=== PATIENT | male | born 1970 | race African-American/Black ===

== ENCOUNTER 2021-05-18 17:47 | Emergency (ER) | payer OTHER, SELFPAY ==
[2021-05-18 17:53] VITALS: BP 143/82; PULSE 80; RESP 16; TEMP 36.2; O2SAT 100
--- NOTE | 2021-05-18 17:53 | ED.MALEGU ---
HPI - Male Genitourinary General Chief complaint: Urogenital-Male Stated complaint: POS UTI History of Present Illness HPI Narrative: Patient is a 50-year-old male who presents complaining of burning with urination x3 to 4 days. He reports frequency and urgency. He denies history of UTIs. Denies concerns for STDs. He denies testicular pain or swelling. He denies all other complaints this time. Patient has no significant medical history. MD Complaint: dysuria Related Data Home Medications Medication Instructions Recorded Confirmed simvastatin mg 07/27/19 11/10/20 hydrochlorothiazide 25 mg tablet 25 mg PO DAILY 11/07/20 11/10/20 amlodipine 05/18/21 rosuvastatin mg 05/18/21 sildenafil 05/18/21 Allergies Allergy/AdvReac Type Severity Reaction Status Date / Time No Known Allergies Allergy Verified 05/18/21 17:55 Review of Systems Review of Systems: CONSTITUTIONAL: Denies fever, chills, or sweats. EYES: Denies visual changes, redness, or discharge. ENT: Denies rhinorrhea, congestion, sore throat, or otalgia. CARDIOVASCULAR: Denies chest pain, palpitations, or edema. RESPIRATORY: Denies cough or dyspnea. GASTROINTESTINAL: Denies abdominal pain, nausea, vomiting, or diarrhea. GENITOURINARY: Reports dysuria SKIN: Denies rash or itching. MUSCULOSKELETAL: Denies back pain, joint pain, or myalgia. NEUROLOGIC: Denies headache, numbness, dizziness, or weakness. PSYCHIATRIC: Denies anxiety or depression. [facility] Past Medical History Medical History GERD (gastroesophageal reflux disease) Hypercholesterolemia Hypertension Family History Family History Father Diabetes mellitus Hypertension Mother Diabetes mellitus Heart disease Hypertension Grandparent Hypertension Lung cancer Social History Social History Smoking status: Never smoker Second hand tobacco smoke exposure: No Alcohol intake: never Substance use: unknown Gender identity (if verbalized by the patient): Male Comments At the time of signature, I have reviewed and agree with nursing past medical, surgical, social, and family history unless otherwise noted. Please see nursing chart for further information. There is no relevant family history pertinent to the presenting complaint. Exam Narrative: GENERAL: Well-appearing, well-nourished, and in no acute distress. HEAD: Normocephalic, atraumatic. EYES: EOMI. No redness or drainage. Conjunctiva are normal. ENT: Mucous membranes pink and moist. CHEST: No respiratory distress. HEART: Regular rate and rhythm. EXTREMITIES: Normal range of motion. No edema. SKIN: Warm, dry, no rash. NEURO: No focal deficits. Alert and oriented x3. Gait steady. PSYCH: Normal affect. No signs of depression or anxiety. MDM - Male Genitourinary MDM Narrative Medical decision making narrative: Patient treated with antibiotics at this time as he is symptomatic. Discussed with patient many other things could be occurring and follow-up with his PCP as necessary in the next 3 to 5 days. Patient agrees with plan of care. Patient is to for discharge to home with outpatient follow-up as discussed. Patient is aware of red flags and when to seek further evaluation in the emergency department. Differential Diagnosis Differential diagnosis: Likely urinary tract infection, priapism, urethritis, epididymitis and prostatitis Critical Care Time Critical Care Time Critical Care Time: No Discharge Plan Discharge Clinical Impression: Urinary tract infection Qualifiers: Urinary tract infection type: site unspecified Hematuria presence: without hematuria Qualified Code(s): N39.0 - Urinary tract infection, site not specified Patient Disposition: Home, Self-Care Condition: Stable Instructions: Antibiotic Form, Urinary Tract Infection in Men (DC)
== END 2021-05-18 18:12 | disposition home or self-care (01) ==
PROVIDERS: Emergency Provider Nurse Practitioner; PCP Internal Medicine
DX: N39.0 Urinary tract infection, site not specified (principal); K21.9 Gastro-esophageal reflux disease without esophagitis; E78.00 Pure hypercholesterolemia, unspecified; I10 Essential (primary) hypertension
CPT/HCPCS: 81003; 87086; 99213; G0463

== ENCOUNTER 2021-07-27 00:34 | Day surgery (SDC) | payer OTHER, SELFPAY ==
[2021-06-16 15:36] VITALS: BMI 24.3
[2021-07-14 15:05] VITALS: BMI 24.3
[2021-07-27 08:18] VITALS: BP 134/83; PULSE 70; RESP 16; TEMP 36.2; O2SAT 99; BMI 24.7
[2021-07-27] MEDS: LACTATED RINGERS 1,000 ML 150 ML IV CONT (08:34)
--- NOTE | 2021-07-27 08:45 | P.PNAN_ITS ---
Anes - Initial Pre Proc Eval Procedure: Operation Date: 07/27/21 09:00 Proposed Procedures p Screening Colonoscopy - Gómez Wan MD Date/Time: 07/27/21 08:45 Surgeon: Gómez Wan MD Pre Op Diagnosis: neoplasm screening Patient Data Age: 50 Gender: M Height: 1.88 m Weight: 87.6 kg Last Vital Signs Temp 97.1 F L 07/27/21 08:18 Pulse 70 07/27/21 08:18 Resp 16 07/27/21 08:18 BP 134/83 07/27/21 08:18 Pulse Ox 99 07/27/21 08:18 Allergies Allergy/AdvReac Type Severity Reaction Status Date / Time No Known Allergies Allergy Verified 07/27/21 08:16 Home Medications Medication Instructions Recorded Confirmed Type hydrochlorothiazide 25 mg tablet 25 mg PO DAILY 11/07/20 06/16/21 History amlodipine 5 mg PO DAILY 05/18/21 06/16/21 History rosuvastatin 10 mg PO DAILY 05/18/21 06/16/21 History tadalafil 10 mg PO DAILY PRN 06/16/21 06/16/21 History Patient hx anesthesia problems: none Family hx anesthesia problems: none Results Review: All pre-operative results and documents have been reviewed as part of the pre-operative evaluation. [facility] Past Medical History Medical History GERD (gastroesophageal reflux disease) Hypercholesterolemia Hypertension Family History Family History Father Diabetes mellitus Hypertension Mother Diabetes mellitus Heart disease Hypertension Grandparent Hypertension Lung cancer Social History Social History Smoking status: Never smoker Second hand tobacco smoke exposure: No Alcohol intake: never Substance use: never Substance use type: does not use Living arrangements: with family Gender identity (if verbalized by the patient): Male Spiritual care concerns: No Anes - Eval Final PreProcedure Day of Procedure 07/27/21 08:45 Patient weight: normal Heart: regular rate and rhythm Lungs: clear to auscultation Airway: Mallampati scale class II Neurological: alert and oriented Last oral intake: >/= 8 hours ASA classification: II Emergent: no Anesthetic plan: proceed Anesthesia type and monitoring: general GIVS and standard monitoring Results Review: All pre-operative results and documents have been reviewed as part of the pre-operative evaluation. Informed Consent: The patient's anesthetic plan and its attendant risks and benefits were discussed with the patient/family/POA. Questions were solicited and answers provided to the satisfaction of the patient/family/POA.
--- NOTE | 2021-07-27 08:59 | WPDGICN ---
Assessment and Plan Assessment and plan (1) Encounter for screening colonoscopy: Code(s): Z12.11 - Encounter for screening for malignant neoplasm of colon Status: Acute Assessment and Plan: Patient presents today for screening colonoscopy. Appears to be at average risk for colon polyps. Further recommendations will be given after endoscopy. GI Consult Note Consult date/time: 07/27/21 08:59 HPI: Daniel Dailey is a 50 year old male Presents for screening colonoscopy. Patient's current weight appetite bowel movements are now normal. He denies abdominal pain. He has had no bleeding. Family history is noncontributory. He presents today for neoplasia screening. Review of Systems Review of Systems: All systems reviewed & are unremarkable except as noted in HPI and below PMFSH Past Medical History Medical History GERD (gastroesophageal reflux disease) Hypercholesterolemia Hypertension Family History Family History Father Diabetes mellitus Hypertension Mother Diabetes mellitus Heart disease Hypertension Grandparent Hypertension Lung cancer Social History Social History Smoking status: Never smoker Second hand tobacco smoke exposure: No Alcohol intake: never Substance use: never Substance use type: does not use Living arrangements: with family Gender identity (if verbalized by the patient): Male Spiritual care concerns: No Meds Home Medications and Allergies Home Medications Medication Instructions Recorded Confirmed Type hydrochlorothiazide 25 mg tablet 25 mg PO DAILY 11/07/20 06/16/21 History amlodipine 5 mg PO DAILY 05/18/21 06/16/21 History rosuvastatin 10 mg PO DAILY 05/18/21 06/16/21 History tadalafil 10 mg PO DAILY PRN 06/16/21 06/16/21 History Allergies Allergy/AdvReac Type Severity Reaction Status Date / Time No Known Allergies Allergy Verified 07/27/21 08:16 Vital Signs Vital Signs - 24 hr 07/27/21 08:18 Temperature 97.1 F L Pulse Rate 70 Respiratory Rate 16 Blood Pressure 134/83 Pulse Oximetry 99 Exam Narrative: Physical exam reveals patient to be alert. Vital signs stable. HEENT exam is unremarkable. Patient is anicteric. Lungs are clear to auscultation and percussion. Heart is without murmur or extra sounds. Abdominal exam bowel sounds are present soft nontender with no organomegaly. Digital external rectal exam is normal.
[2021-07-27 09:28] VITALS: BP 97/48; PULSE 68; RESP 13; O2SAT 94
[2021-07-27 09:38] VITALS: BP 101/53; PULSE 61; RESP 11; O2SAT 100
[2021-07-27 09:48] VITALS: BP 105/62; PULSE 63; RESP 15; O2SAT 99
[2021-07-27 09:50] VITALS: BP 124/85; PULSE 71; RESP 14; O2SAT 100
== END 2021-07-27 10:00 | disposition home or self-care (01) ==
PROVIDERS: PCP Internal Medicine; Visit Provider Internal Medicine Gastroenterology
PROC: 0DJD8ZZ Inspection of Lower Intestinal Tract, Via Natural or Artificial Opening Endoscopic (ICD-10-PCS; CPT 45378; principal; 2021-07-27 09:00)
DX: Z12.11 Encounter for screening for malignant neoplasm of colon (principal); K64.8 Other hemorrhoids; I10 Essential (primary) hypertension; E78.00 Pure hypercholesterolemia, unspecified; K21.9 Gastro-esophageal reflux disease without esophagitis
CPT/HCPCS: 45378; J2704; J7120

== ENCOUNTER 2022-08-27 08:22 | Emergency (ER) | payer OTHER, SELFPAY ==
--- NOTE | ~2022-08-27 | XR_ITS ---
XR finger 3rd LT min 2V 08/27/2022 09:03 INDICATION: Left third finger pain PROCEDURE: 4 views left third finger COMPARISON: No prior studies for comparison. FINDINGS: Fracture, dislocation or subluxation is not identified. The soft tissues appear within norm al limits. No foreign bodies are identified. IMPRESSION: 1: NO ACUTE BONE OR JOINT ABNORMALITY IDENTIFIED. Reviewed, dictated and finalized at location B. OPERATOR
[2022-08-27 08:49] VITALS: BP 153/92; PULSE 80; RESP 16; TEMP 36.1; O2SAT 100
--- NOTE | 2022-08-27 08:51 | ED.UPPEXIN ---
HPI - Extremity Injury (Upper) General Chief Complaint: Extremity Injury, Upper Stated Complaint: lt hand middle finger Time Seen by Provider: 08/27/22 09:09 Source: patient and RN notes reviewed Mode of arrival: ambulatory Limitations: no limitations History of Present Illness HPI narrative: 51-year-old male presents with concern for pain to the 3rd digit of the left hand. 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 the digit. Reports he had pain immediately. He reports he thought it would just go away so he did not take any intervention. He denies any swelling, bruising any point. He denies decreased sensation, strength, range of motion in the digit. He reports pain at the DIP joint with flexion. Reports 6/10 pain. Denies pain at rest. Denies redness, warmth, open skin MD complaint: injury to: left and finger Related Data Home Medications Medication Instructions Recorded Confirmed hydrochlorothiazide 25 mg tablet 25 mg PO DAILY 11/07/20 08/27/22 amlodipine 5 mg tablet 5 mg PO DAILY 05/18/21 08/27/22 rosuvastatin 10 mg tablet 10 mg PO DAILY 05/18/21 08/27/22 tadalafil 10 mg tablet 10 mg PO DAILY PRN Sexual Activity 06/16/21 08/27/22 Allergies Allergy/AdvReac Type Severity Reaction Status Date / Time No Known Allergies Allergy Verified 08/27/22 08:50 Review of Systems Review of Systems: CONSTITUTIONAL: Denies malaise, chills, sweats, or fever. SKIN: Denies rash or itching, open skin, laceration, abrasion, redness, warmth, swelling. MUSCULOSKELETAL: Reports left 3rd digit pain NEUROLOGIC: Denies numbness, weakness All systems reviewed & are unremarkable except as noted in HPI and below PMFSH Past Medical History Medical History GERD (gastroesophageal reflux disease) Hypercholesterolemia Hypertension Family History Family History Father Diabetes mellitus Hypertension Mother Diabetes mellitus Heart disease Hypertension Grandparent Hypertension Lung cancer Social History Social History Smoking status: Never smoker Second hand tobacco smoke exposure: No Alcohol intake: never Substance use: never Substance use type: does not use Living arrangements: with family Gender identity (if verbalized by the patient): Male Spiritual care concerns: No Comments At time of signature, agree with nursing past medical, surgical, social and family history. There is no relevant family history pertinent to the presenting complaint Exam Narrative: GENERAL: Well-appearing, well-nourished, and in no acute distress. HEAD: Normocephalic EYES: PERRLA, conjunctivae clear NECK: Supple. CHEST: Speaks in full sentences. No respiratory distress. HEART: Regular rate and rhythm. Normal and equal peripheral pulses. EXTREMITIES: 3rd digit of left hand ties normal strength and sensation. 5/5 strength with digit flexion, extension. Range of motion normal. No clubbing, cyanosis, or edema noted. No tenderness. Skin intact. Normal digital cascade with flexion of fingers, median, ulnar and radial nerve intact. Normal sensation of each side of finger. Can perform 'okay' sign, 'cross over finger test of index and middle fingers' and 'thumbs up' sign. No scissoring. Good capillary refill and radial pulse. Distal capillary refill less than 3 seconds. Patient is right/left hand dominant SKIN: Warn, dry, intact, pink. No rash NEURO: Alert and oriented x3. PSYCH: Normal mood and affect Course Course Emergency Course: Advised patient to wear splint, take anti-inflammatories and if symptoms do not improve within 1 week of these interventions he should follow-up with specialist. Patient is aware of diagnosis, understands and agrees to treatment plan. Anticipatory guidance given. Annie
== END 2022-08-27 09:27 | disposition home or self-care (01) ==
PROVIDERS: Emergency Provider Nurse Practitioner; PCP Internal Medicine
DX: S63.613A Unspecified sprain of left middle finger, initial encounter (principal); I10 Essential (primary) hypertension; X58.XXXA Exposure to other specified factors, initial encounter; Y99.0 Civilian activity done for income or pay
CPT/HCPCS: 29130; 73140; 99213; G0463

== ENCOUNTER 2023-03-28 18:05 | Emergency (ER) | payer OTHER, SELFPAY ==
[2023-03-28 18:12] VITALS: BP 148/91; PULSE 89; RESP 16; TEMP 36.8; O2SAT 99
--- NOTE | 2023-03-28 18:28 | ED.EAR ---
HPI - Ear Problem General Chief complaint: Ear Stated complaint: FLUID IN EARS Source: patient Mode of arrival: ambulatory Limitations: no limitations History of Present Illness HPI Narrative: 52-year-old male presented for complaint of bilateral ear pressure, left worse than right, for over one week. Symptoms started after flying to [place]. Endorses sinus congestion and drainage about one week ago which has resolved. Reports muffled hearing. Endorses chronic tinnitus unchanged from baseline. Denies dizziness, n/v/d/f/c. MD Complaint: ear pain Related Data Home Medications Medication Instructions Recorded Confirmed hydrochlorothiazide 25 mg tablet 25 mg PO DAILY 11/07/20 03/28/23 amlodipine 5 mg tablet 5 mg PO DAILY 05/18/21 03/28/23 rosuvastatin 10 mg tablet 10 mg PO DAILY 05/18/21 03/28/23 tadalafil 10 mg tablet 10 mg PO DAILY PRN Sexual Activity 06/16/21 03/28/23 Allergies Allergy/AdvReac Type Severity Reaction Status Date / Time No Known Allergies Allergy Verified 03/28/23 18:12 Review of Systems Review of Systems: CONSTITUTIONAL: Denies malaise, chills, or fever. EYES: Denies visual changes, redness, or discharge. ENT: Denies rhinorrhea, congestion, sinus pain, and sore throat. Reports ear pain CARDIOVASCULAR: Denies chest pain, palpitations, or edema. RESPIRATORY: Denies cough or dyspnea. GASTROINTESTINAL: Denies abdominal pain, nausea, vomiting, diarrhea SKIN: Denies rash or itching. MUSCULOSKELETAL: Denies myalgia. NEUROLOGIC: Denies headache. All systems reviewed & are unremarkable except as noted in HPI and below PMFSH Past Medical History Medical History GERD (gastroesophageal reflux disease) Hypercholesterolemia Hypertension Family History Family History Father Diabetes mellitus Hypertension Mother Diabetes mellitus Heart disease Hypertension Grandparent Hypertension Lung cancer Social History Social History Smoking status: Never smoker Second hand tobacco smoke exposure: No Alcohol intake: never Substance use: never Substance use type: does not use Living arrangements: with family Gender identity (if verbalized by the patient): Male Spiritual care concerns: No Comments At time of signature, agree with nursing past medical, surgical, social and family history. There is no relevant family history pertinent to the presenting complaint Exam Narrative: GENERAL: Well-appearing, well-nourished, and in no acute distress. HEAD: Normocephalic EYES: PERRLA, conjunctivae clear ENT: Nares clear. Mucous membranes moist. Right TM pearly browning with dull light reflex; Left TM with mild erythema, intact; and mild purulent effusion; no tragal tenderness. Oropharynx not erythematous without lesions. Tonsils not enlarged and without exudate, no drooling, no hoarseness, no trismus, uvula midline. NECK: Supple. No lymphadenopathy CHEST: Clear to auscultation, breath sounds equal. No wheezing, rhonchi, rales, or stridor. No respiratory distress, speaks in full sentences. HEART: Regular rate and rhythm. No murmur heard. SKIN: Warm, dry, no rash. NEURO: Alert and oriented x3. PSYCH: Normal mood and affect Course Course Emergency Course: Patient is aware of diagnosis, understands and agrees to treatment plan. Anticipatory guidance given. Patient agrees to follow-up as directed and is aware of reasons to seek care at the emergency department. Portions of this record may have been created with voice recognition software Level of Care: Express Care Visit Vital Signs Vital signs: Vital Signs Temperature 98.3 F 03/28/23 18:12 Pulse Rate 89 03/28/23 18:12 Respiratory Rate 16 03/28/23 18:12 Blood Pressure 148/91 H 03/28/23 18:12 Pulse Oximetry 99 03/28/23 18:12 Temperature 98.3 F
== END 2023-03-28 18:36 | disposition home or self-care (01) ==
PROVIDERS: Emergency Provider Nurse Practitioner Family; PCP Internal Medicine
DX: H66.93 Otitis media, unspecified, bilateral (principal); I10 Essential (primary) hypertension; Z79.899 Other long term (current) drug therapy
CPT/HCPCS: 99213; G0463

== ENCOUNTER → 2023-05-16 08:44 | Outpatient (CLI) | payer OTHER, SELFPAY ==
--- NOTE | ~2023-05-16 | CT_ITS ---
EXAMINATION: CT sinus wo con DATE: 05/16/2023 09:02 INDICATION: Rhinitis. Sinusitis. Mixed conductive and neurosensory hearing loss. Tinnitus. TECHNIQUE: Computed tomography (CT) of the paranasal sinuses was performed without contrast. Iterativ e reconstruction technique was employed. Exam dose: 278.24 mGy-cm total exam DLP. COMPARISON: None FINDINGS: The middle and inner ear apparatus appear normal bilaterally. The mastoid air cells are normally developed and aerated bilaterally. Is leftward deviation of the nasal septum. There is moderate soft tissue swelling of the nasal turbin ates. The ostiomeatal units are patent. The frontal, ethmoid and sphenoid sinuses are normally developed and aerated. There is an approximately 6 mm mucus retention cyst or polyp along the medial wall right maxillary si nus and up to approximately 1.3 x 1.6 x 2 cm polypoid soft tissue density in the lower right maxillar y sinus in addition to several focal areas of mild mucoperiosteal thickening of the right maxillary s inus. IMPRESSION: Leftward deviation of nasal septum Patent ostiomeatal units Small mucus retention cyst left maxillary sinus and up to 1.3 x 1.6 x 2 cm polypoid opacity of the lo wer right maxillary sinus and several focal areas of minimal nuchal periosteal thickening of the righ t maxilla sinus The remaining paranasal sinuses and the mastoid air cells are normal Normal middle and inner ear apparatus Reviewed, dictated and finalized at Location A. Reviewed, dictated and finalized at location L. GER PIPELINE IMPRESSION: Leftward deviation of nasal septum Patent ostiomeatal units Small mucus retention cyst left maxillary sinus and up to 1.3 x 1.6 x 2 cm poly poid opacity of the lower right maxillary sinus and several focal areas of mini mal nuchal periosteal thickening of the right maxilla sinus The remaining paranasal sinuses and the mastoid air cells are normal Normal middle and inner ear apparatus
== END ==
PROVIDERS: PCP Otolaryngology; Visit Provider Otolaryngology
DX: H90.6 Mixed conductive and sensorineural hearing loss, bilateral (principal); H93.19 Tinnitus, unspecified ear; J34.2 Deviated nasal septum
CPT/HCPCS: 70486

== ENCOUNTER 2025-05-12 07:41 | Outpatient (CLI) | payer BC, SELFPAY ==
--- OUTSIDE RECORDS SUMMARY | 2025-05-12 07:44 | XMS_ITS | Clinical Summary ---
Author Organization [facility] [employer] Address [address] [place] [address] Care Team Providers Care Finish Carpenter Name Role Phone Unavailable Primary Care Provider Unavailabl e Source Comments [facility],non-owned Affiliates and Associated Physician Practices is amultiple site organization consisting of ambulatory clinics and hospital sitesin [place], [place], [place] and [place]. This disclosure is being madepursuant to the Care Everywhere program and may not contain all information available regarding this patient. 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 Gender Identity Not on file Sexual Orientation Not on file Plan of Treatment Health Maintenance Due Date Last Done Comments COLOGUARD (AGES 45-75) - COL ON CA SCREENING 1972 COLON MONITORING 1972 COLONOSCOPY - COLON CA SCREENING 1972 CT COLONOGRAPHY - COLON CA SCREENING 1972 Colorectal Cancer Screening 1972 FIT - COLON CA SCREENING 1972 FLEX SIG - COLON CA SCREENING 1972 LIPID TESTING 1972 HIV SCREENING 10/07/1987 HEPATITIS C SCREENING 10/02/1990 DTAP/TDAP/TD VACCINES (1 - Tdap) 10/07/1991 HEPATITIS B VACCINE (1 of 3 - 19+ 3-dose series) 10/07/1991 PNEUMOCOCCAL VACCINE 50+ (1 of 1 - PCV) 2022 ZOSTER VACCINE (1 of 2) 2022 DEPRESSION SCREENING 07/01/2024 COVID-19 VACCINE (1 - 2023-2 5 season) 2025 INFLUENZA VACCINE (#1) 2025 HIB VACCINE Aged Out No longer eligi ble based on patient's age to complete this topic HPV VACCINE Aged Out No longer eligi ble based on patient's age to complete this topic MENINGOCOCCAL (Group B) VACC INE SHARED DECISION-MAKING Aged Out No longer eligibl e based on patient's age to complete this topic MENINGOCOCCAL GROUPS A/C/Y/W VACCINE Aged Out No longer eligible b ased on patient's age to complete this topic Insurance [place] [id number]
--- OUTSIDE RECORDS SUMMARY | 2025-05-12 07:44 | XMS_ITS | Clinical Summary ---
Author Organization [facility] Address [address] [place] [address] Care Team Providers Care Glove Wrapper Name Role Phone Nabil Gross MD Primary Care Provider [phone] Allergies Active Allergy Reactions Criticality Noted Date Comments Adhesive Flushing (skin) Low 08/18/2019 Medications simvastatin (ZOCOR) 40 mg tablet Take 1 tablet (40 mg total) by mouth nightly 90 tablet 3 0 Active dilTIAZem CD/XR/XT (dilTIAZem CD) 120 mg 24 hr capsule One daily for 7 days then every other day for 7 days then DC 14 capsule 0 Active Additional Information Patient not taking.Reported on 05/02/2020 telmisartan (MICARDIS) 20 mg tablet Take 1 tablet (20 mg total) by mouth daily 30 tablet 11 0 Active Additional Information Patient not taking.Reported on 05/02/2020 hydroCHLOROthia zide (HYDRODIURIL) 12.5 mg tablet Take 12.5 mg by mouth daily [address] (PROTONIX) 40 mg EC tabletIndicatio ns:Laryngophary ngeal reflux (LPR) Take 1 tablet (40 mg total) by mouth daily 30 tablet 3 0 Active Active Problems Problem Noted Date Diagnosed Date Annual physical exam 07/20/2019 HTN (hypertension) 05/23/2016 Immunizations Immunization Administration Dates Next Due Flucelvax Influenza Quad 07/21/2019 Influenza, Unspecified 03/31/2019(Deferred: Annie ent Refused) Family History Medical History Relation Name Comments No Known Problems Brother Diabetes Father No Known Problems Maternal Grandfather No Known Problems Maternal Grandmother Diabetes Mother Heart disease Mother Hypertension Mother No Known Problems Paternal Grandfather No Known Problems Paternal Grandmother No Known Problems Sister Relation Name Status Comments Brother Alive Father Alive Maternal Grandfather Maternal Grandmother Mother Alive Paternal Grandfather Paternal Grandmother Sister Alive Social History Tobacco Use Types Packs/Day Years Used Date Smoking Tobacco: Never Smokeless Tobacco: Never Alcohol Use Standard Drinks/Week Comments Not Currently 0 (1 standard drink = 0.6 oz pur e alcohol) AUDIT-C Answer Date Recorded Frequency of Alcohol Consumption Never 07/20/2019 Average Number of Drinks Not on file 020 Frequency of Binge Drinking Not on file 07/02 Personal Safety Answer Date Recorded Getting School Help Needed Not on file 09/14 Sex and Gender Information Value Date Recorded Sex Assigned at Not on file 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 Gender Identity Not on file Sexual Orientation Not on file Last Filed Vital Signs Vital Sign Reading Time Taken Comments Blood Pressure 139/89 05/02/2020 1:40 PM INFUSION NURSE Pulse 69 05/02/2020 1:40 PM INFUSION NURSE Temperature 36.3 C (97.3 F) 05/02/2020 1:40 PM INFUSION NURSE Respiratory Rate 16 05/02/2020 1:40 PM INFUSION NURSE Oxygen Saturation 95% 08/18/2019 8:46 AM INFUSION NURSE Inhaled Oxygen Concentration - - Weight 89.8 kg (198 lb) 05/02/2020 1:40 PM INFUSION NURSE Height 188 cm (6' 2) 05/02/2020 1:40 PM INFUSION NURSE Body Mass Index 25.42 05/02/2020 1:40 PM INFUSION NURSE Plan of Treatment Not on file Insurance [employer] Care Teams Glove Wrapper Relationship Specialty Start Date End Date Nabil Gross MD PCP - General Family Medicine 07/09/19
--- OUTSIDE RECORDS SUMMARY | 2025-05-12 07:45 | XMS_ITS | Data Portability ---
Author Organization [facility] (11) Address [address] [address] Assessment No assessment recorded. Plan of Treatment Reminders Order Date Submit Date Provider Last Modified By Organization Details Last Modified Time Details Appointments None record ed. Lab None record ed. Referral None record ed. Procedures None record ed. Surgeries None record ed. Imaging None record ed. Medication Orders None record ed. Patient TargetsNo targets recorded. Patient InstructionsNo instructions recorded. Reason for Referral None Reported. Procedures Surgical History Date Name Laterality Status Provider Name and Address Organization Details Recorded Time 11/13/2023 Sleep Study completed Tom Galvan [facility] 11/15/2023 13:21:36 Imaging Results None recorded. Procedure Notes None recorded. Medical Equipment None Reported. Medications Name Sig Start Date Stop Date Status Note LastModified by Organization Details LastModified Time spironolacto ne 25 mg-hydrochlo rothiazide 25 mg tablet TAKE 1 TABLET BY MOUTH EVERY DAY active Not Available Not Available No t Available prednisone 20 mg tablet 20 MG ORALLY DAILY active Not Available Not Available No t Available methylpredni solone 4 mg tablet TAKE ONE TABLET BY MOUTH TWICE DAILY active Not Available Not Available No t Available amlodipine 5 mg tablet active Not Available Not Available No t Available triamcinolon e acetonide 0.1 % topical cream APPLY A THIN LAYER TO THE AFFECTED AREA(S) BY TOPICAL ROUTE 2 TIMES PER DAY. NEVER TO FACE. active Not Available Not Available No t Available amlodipine 10 mg tablet TAKE 1 TABLET BY MOUTH EVERY DAY IN THE EVENING active Not Available Not Available No t Available hydrochlorot hiazide 25 mg tablet active Not Available Not Available No t Available azelastine 137 mcg (0.1 %) nasal spray 137 MCG (0.137 ML) INTRANASALL Y EVERY 12 HOURS ADMINISTER INTO EACH NOSTRIL active Not Available Not Available No t Available amoxicillin 875 mg-potassium clavulanate 125 mg tablet TAKE 1 TABLET BY MOUTH EVERY 12 HOURS FOR 7 DAYS active Not Available Not Available N ot Available rosuvastatin 10 mg tablet active Not Available Not Available Not Available tadalafil 20 mg tablet active Not Available Not Available No t Available cholecalcife rol (vitamin D3) 25 mcg (1,000 unit) tablet active Not Available Not Available Not Available Vitals Date Recorded Body height Body mass index (BMI) Body weight Provider Name and Address Organization Details Last Updated DateTime 11/13/2023 187.96 cm 25.2 kg/m2 18560.1 g Nabil [facility] [place]/13/2023 10:05:17 Social History None recorded. Functional Status None recorded. Mental Status None recorded. Family History Nothing Reported. Medical History No medical history recorded. Past Encounters Encounter ID Performer Location Encounter Start Date Encounter Closed Date Diagnosis/Indication Diagnosis SNOMED-CT Code Diagnosis ICD10 Code Diagnosis IMO Codes Diagnosis Note [id number] [facility] [place], [facility] [phone] [place] [address] 11/13/2023 09:43:20 11/15/2023 13:14:09 Obstructive sleep apnea of adult 0280120737 103 G47.33 Health Concerns Section Related Observation LastModified by Organization Detai ls LastModified Time None Recorded Concern Status LastModified by Organization Details LastModified Time None Recorded Advance Directives Directive None Recorded Payers Insurance Date Sequence Insurance Name Policy Number Policy Zurita Covered Member ID Zurita Member ID Guarantor Name 11/27/2023 1 [employer] [id number] Daniel Dailey [id number] Daniel Dailey Notes Date Note Type Note Provider Name and Address Organization Details Recorded Time 11/13/2023 text/html HST SetupReporte d by PatientEquipment InstructionsFor hst set up, patient reportshst device number 31,demonstrated to patient how to set up home sleep test device. the patient was able to return demonstration with out difficulty., andthe patient is returning the device the following morning.. MD JERMAINE Evans, F.C.C.P. [phone] [address] [place] [address], [place], [address], EVELINA - [facility]/ERNA/ESTEFANIA 11/15/2023 16:32:32
--- OUTSIDE RECORDS SUMMARY | 2025-05-12 07:45 | XMS_ITS | Encounter Summary ---
Author Organization [facility] Address [address] [place] [address] Care Team Providers Care Texturing Machine Fixer Name Role Phone Manny Kimbrough MD Unavailable Unavailable Encounter Details Date Type Department Care Team (Late st Contact Info) Description 02/25/2019 Lab Requisition [facility] Derm[facility] Lab [address] [facility] [place] [id number] Hernan Michaud MD [address] [place] [phone] Social History Tobacco Use Types Packs/Day Years Used Date Smoking Tobacco: Never Assessed Sex and Gender Information Value Date Recorded Sex Assigned at Not on file Legal Sex Male 6:02 PM [employer]OTHING [employer] Gender Identity Not on file Sexual Orientation Not on file documented as of this encounter Plan of Treatment Not on file documented as of this encounter Procedures Procedure Name Priority Date/Time Associated Diagnosis Comments DERMATOPATHOLOGY Routine 02/24/2019 12:0 0 AM CDT documented in this encounter Results * DERMATOPATHOLOGY (02/24/2019 12:00 AM CDT) Case Report Dermatopathology Report Case: [id number] Authorizing Provider: Hernan Michaud MD Collected: 02/24/2019 12:00 AM Ordering Location: [facility] Derm[facility] Lab Received: 02/25/2019 10:59 AM Pathologist: Jackson Guillen MD Specimen: Skin, right upper back 9 4:56 PM CDT DERMATOPATHOLOGY LABORATORY Final Diagnosis Specimen A. 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 4:56 PM CDT DERMATOPATHOLOGY LABORATORY Gross Description Specimen A: Received is one formalin filled container labeled with the patient's name and designated right upper back. The specimen consists of a shave biopsy measuring [id number], bisected. Jar 0. 4:56 PM CDT DERMATOPATHOLOGY LABORATORY Microscopic Description Specimen A. SKIN, right upper back: There is a gently folded epidermis surrounding a connective tissue core in which fat and collagen are intermingled. 4:56 PM CDT DERMATOPATHOLOGY LABORATORY Disclaimer An external and internal positive and negative controls are appropriate for the histochemical, immunohistochemical and immunofluorescence stain(s) in this case (if any), except where stated explicitly. The performance characteristics of the stain(s) cited in this report were developed and its performance characteristic determined by the Dermatopathology Laboratory at [facility], directed by Dr. Devyn Guillen. These tests need not be, and therefore are not, approved by the [place] Food and Drug Administration. The tests are used for clinical purposes. Billing Codes Specimen Charges Stain Charges 07785 1 4:56 PM CDT DERMATOPATHOLOGY LABORATORY Embedded Images 4:56 PM CDT DERMATOPATHOLOGY LABORATORY Pathology/Cytolog y TISSUE SPECIMEN FROM SKIN / Unknown 02/24/2019 02/25/2019 10:59 AM CDT us Hernan Michaud MD LAB - PATHOLOGY/CYTOLOGY ORDERAB LES Final Result DERMATOPATHOLOGY LABORATORY [facility] - Department of Dermatology [address] [place] [address], [address] Floor Lab [address] [phone] documented in this encounter Visit Diagnoses Not on filedocumented in this encounter Care Teams Texturing Machine Fixer Relationship Specialty Start Date End Date Manny Kimbrough MD OIG SANCTIONED!!! DO NOT USE!!! PCP - Attributed-[employer] 03/31/19 09/08/19 documented as of this encounter
--- OUTSIDE RECORDS SUMMARY | 2025-05-12 07:45 | XMS_ITS | Data Portability ---
Author Organization [facility], [employer] Address [address] [address] Assessment Encounter Date Assessment Date Assessment LastModified by Organization Details LastModified Time 02/24/2024 02/24/2024 Patient presente d for follow up. Studies ordered as below. Discussed plan with patient/caregiver , who expressed understanding. Follow up as noted below. [email or web address] Not available 02/24/2024 15:30:43 04/20/2024 04/20/2024 Patient presente d for follow up. Studies ordered as below. Discussed plan with patient/caregiver , who expressed understanding. Follow up as noted below. Not available 04/20/2024 20:41:06 05/01/2024 05/01/2024 Recommends healthy nutrition, including a diet rich in fruits and vegetables, minimizing simple carbohydrates, salt, and saturated fats. Encouraged regular cardiovascular exercise such as walking at least 30 minutes daily, 5 times per week. Not available 05/01/2024 11:02:57 11/25/2024 11/25/2024 Recommends healthy nutrition, including a diet rich in fruits and vegetables, minimizing simple carbohydrates, salt, and saturated fats. Encouraged regular cardiovascular exercise such as walking at least 30 minutes daily, 5 times per week. Not available 11/25/2024 17:22:31 04/05/2025 04/05/2025 Patient presente d for follow up. Studies ordered as below. Discussed plan with patient/caregiver , who expressed understanding. Follow up as noted below. [email or web address] Not available 04/05/2025 17:22:21 Plan of Treatment Reminders Order Date Submit Date Provider Last Modified By Organization Details Last Modified Time Details Appointments ESTABLISH ED PATIENT 15 11/19/ 2025 02:30P Jackson Nunes MD Not available Not available Not available Lab CBC w/ auto diff 2024 025 [facility], [address], [place], [place], [address], 04/05/2025 18:23:04 CMP, serum or plasma 2024 025 [facility], [address], [place], [place], [address], 04/12/2025 08:34:58 amylase + lipase, serum 2024 025 [facility], [address], [place], [place], [address], 04/12/2025 08:34:58 HbA1c (hemoglob in A1c), blood 2024 025 [email or web address] [facility], [address], [place], [place], [address], 12/01/2024 07:13:02 CMP, serum or plasma 2024 025 [email or web address] [facility], [address], [place], [place], [address], 12/01/2024 07:12:59 lipid panel, serum 2024 025 [facility], [address], [place], [place], [address], 12/01/2024 07:12:58 PSA, serum or plasma 2024 025 [email or web address] [facility], [address], [place], [place], [address], 12/01/2024 07:13:00 vitamin D, 25-hydrox y, total, serum 2024 025 [email or web address] [facility], [address], [place], [place], [address], 12/01/2024 07:13:01 microalbu min/creat inine, mass ratio, urine 2024 025 [facility], [address], [place], [place], [address], 12/01/2024 07:12:58 CBC w/ auto diff 2024 025 [facility], [address], [place], [place], [address], 12/01/2024 07:13:00 iron + TIBC + ferritin, serum 2024 025 [facility], [address], [place], [place], [address], 12/01/2024 07:12:57 HbA1c (hemoglob in A1c), blood 2023 024 [facility], [address], [place], [place], [address], 05/06/2024 10:20:45 vitamin D, 25-hydrox y, total, serum 2023 024 [facility], [address], [place], [place], [address], 05/06/2024 10:20:44 microalbu min/creat inine, mass ratio, urine 2023 024 [facility], [address], [place], [place], [address], 05/06/2024 10:20:41 CBC w/ auto diff 2023 024 [facility], [address], [place], [place], [address], 05/06/2024 10:20:43 iron + TIBC + ferritin, serum 2023 024 [email or web address] [facility], [address], [place] [address], [place], [address], 05/06/2024 10:20:38 CMP, serum or plasma 2023 024 [email or web address] [facility], [address], [address], [place], [address], 05/06/2024 10:20:42 lipid panel, serum 2023 024 [email or web address] [facility], [address], [place] [address], [place], [address], 05/06/2024 10:20:39 Referral gastroent erologist referral 2024 025 jarrett Wan MD, [address] [facility] [address], [place], [address], 11/25/2024 17:26:46 gastroent erologist referral 2023 024 jarrett Wan MD, [address] [facility] [address], [place], [address], 06/01/2024 08:42:24 podiatris t referral 2023 024 [email or web address] Kurtis Gomez DPM, [address] [facility], [facility] [address], [place], [address], 04/15/2025 08:16:51 Procedures None recorded. Surgeries None recorded. Imaging XR, sternum, 2 or more view - Please focus on the Xiphoid process where the pain is. 2024 [facility] ([facility]), [address], [address], [place], [address], 04/12/2025 08:34:51 electroca rdiogram 2024 025 [facility], [facility], [address] [facility] , [address], [place], [address], 11/30/2024 08:42:42 XR, foot, 3 or more view 2023 024 [facility] ([facility]), [address], [address], [place], [address], 04/27/2024 09:03:50 XR, ribs, unilatera l, w/ PA chest 2023 024 [facility] ([facility]), [address], [address], [place], [address], 03/03/2024 13:59:58 Medication Orders None recorded. Patient TargetsNo targets recorded. Patient InstructionsNo instructions recorded. 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 Pain in right foot Referring Physician: Josafat Nunes, Internal Medicine, Encounter Date: 04/20/2024 Manager Care Referral for Hematochezia Referring Physician: Josafat Nunes, Internal Medicine, Encounter Date: 05/01/2024 Manager Care Referral for Hematochezia Referring Physician: Josafat Nunes, Internal Medicine, Encounter Date: 11/25/2024 Results Created Date Observation Date Name Description Value Unit Range Abnormal Flag Note LastModifiedBy Organization Detail LastModifiedTime 05/05/2005/06/2024 IRON, TIBC AND KASHMIR TIN PANEL iron, total 138 mcg/d L 50-180 normal Not Available [email or web address] [facility] [address] [place], [address], 05/06/2024 10:20:38 05/05/2005/06/2024 IRON, TIBC AND KASHMIR TIN PANEL iron binding capacity 304 mcg/d L_(ca lc) 250-42 5 normal Not Available [email or web address] [facility] [address] [place], [address], 05/06/2024 10:20:38 05/05/20 24 05/06/2024 IRON, TIBC AND KASHMIR TIN PANEL % saturation 45 %_(ca lc) 20-48 normal Not Available [address], [address], 05/06/2024 10:20:38 05/05/20 24 05/06/2024 IRON, TIBC AND KASHMIR TIN PANEL ferritin 312 NG/mL 38-380 normal Not Available [address], [address], 05/06/2024 10:20:38 05/05/20 24 05/06/2024 LIPID PANEL , STAND KASIA cholesterol, total 184 mg/dL <200 normal Not Available [address], [address], 05/06/2024 10:20:39 05/05/20 24 05/06/2024 LIPID PANEL , STAND KASIA HDL cholesterol 75 mg/dL > or = 40 normal Not Available [address], [address], 05/06/2024 10:20:39 05/05/20 24 05/06/2024 LIPID PANEL , STAND KASIA triglyceride s 88 mg/dL <150 normal Not Available [address], [address], 05/06/2024 10:20:39 05/05/20 24 05/06/2024 LIPID PANEL , STAND KASIA LDL-choleste rol 91 mg/dL _(afshin c) normal Refer ence range : <100 Madeline able range <100 mg/dL for prima ry preve ntion ; <70 mg/dL for patie nts with CHD or diabe tic patie nts with > or = 2 CHD risk facto rs. LDL-C is now calcu lated using the Luz n-Hop kins calcu latcarrie n, which is a valid ated novel metho d provi ding catarino r accur acy than the [employer] equat ion in the estim ation of LDL-C . Luz carlos SS et al. ZITA. 2013; 310(1 9): 2061- 2068 (http ://ed ucati on.Qu Julian penningtonStudentgems. com/f aq/FA Q164) Not Available [address] , [place], [address], 05/06/2024 10:20:39 05/05/20 24 05/06/2024 LIPID PANEL , STAND KASIA chol/HDLC ratio 2.5 (calc ) <5.0 normal Not Available [address] , [place], [address], 05/06/2024 10:20:39 05/05/20 24 05/06/2024 LIPID PANEL , STAND KASIA non HDL cholesterol 109 mg/dL _(afshin c) <130 normal For patie nts with diabe nelson plus 1 major ASCVD risk facto r, treat ing to a non-H DL-C goal of <100 mg/dL (LDL- C of <70 mg/dL ) is consi dered a thera michela shuklao n. Not Available [address] , [place], [address], 05/06/2024 10:20:39 05/05/20 24 05/06/2024 ALBUM IN, RANDO M URINE W/CRE ATINI NE creatinine, random urine 351 mg/dL 20-320 high Verif ied by repea t joanen sis. Not Available [address], [place], [address], 05/06/2024 10:20:41 05/05/20 24 05/06/2024 ALBUM IN, RANDO M URINE W/CRE ATINI NE albumin, urine 0.6 mg/dL see note: normal Refer ence Range : Refer ence Range Not estab lishe d Not Available [address], [place], [address], 05/06/2024 10:20:41 05/05/20 24 05/06/2024 ALBUM IN, RANDO M URINE W/CRE ATINI NE albumin/crea tinine ratio, random urine 2 mg/g_ creat <30 normal The ADA defin es abnor malit ies in album in excre tion as follo ws: Album inuri a Categ ory Resul t (mg/g creat inine ) Tayler l to Mildl y incre ased <30 Moder ately incre ased 30-29 9 Sever kaci incre ased > OR = 300 The ADA recom mends that at least two of three speci mens colle cted withi n a 3-6 month perio d be abnor mal befor e consi beka g a patie nt to be withi n a diagn ostic categ ory. Not Available [address], [address], 05/06/2024 10:20:41 05/05/20 24 05/06/2024 COMPR EHENS ESSIE METAB OLIC PANEL glucose 93 mg/dL 65-99 normal Fasti ng refer ence inter reg Not Available [address], [address], 05/06/2024 10:20:42 05/05/20 24 05/06/2024 COMPR EHENS ESSIE METAB OLIC PANEL urea nitrogen (BUN) 17 mg/dL 7-25 normal Not Available [address], [address], 05/06/2024 10:20:42 05/05/20 24 05/06/2024 COMPR EHENS ESSIE METAB OLIC PANEL creatinine 1.31 mg/dL 0.70-1 .30 high Not Available [address], [address], 05/06/2024 10:20:42 05/05/20 24 05/06/2024 COMPR EHENS ESSIE METAB OLIC PANEL eGFR 66 mL/mi n/1.7 3m2 > or = 60 normal Not Available [address], [address], 05/06/2024 10:20:42 05/05/20 24 05/06/2024 COMPR EHENS ESSIE METAB OLIC PANEL BUN/creatini ne ratio 13 (calc ) 6-22 normal Not Available [address], [address], 05/06/2024 10:20:42 05/05/20 24 05/06/2024 COMPR EHENS ESSIE METAB OLIC PANEL sodium 140 mmol/ L 135-14 6 normal Not Available [address], [address], 05/06/2024 10:20:42 05/05/20 24 05/06/2024 COMPR EHENS ESSIE METAB OLIC PANEL potassium 4.3 mmol/ L 3.5-5. 3 normal Not Available [address], [address], 05/06/2024 10:20:42 05/05/20 24 05/06/2024 COMPR EHENS ESSIE METAB OLIC PANEL chloride 102 mmol/ L 98-110 normal Not Available [address], [address], 05/06/2024 10:20:42 05/05/20 24 05/06/2024 COMPR EHENS ESSIE METAB OLIC PANEL carbon dioxide 30 mmol/ L 20-32 normal Not Available [address], [address], 05/06/2024 10:20:42 05/05/20 24 05/06/2024 COMPR EHENS ESSIE METAB OLIC PANEL calcium 9.5 mg/dL 8.6-10 .3 normal Not Available [address], [address], 05/06/2024 10:20:42 05/05/20 24 05/06/2024 COMPR EHENS ESSIE METAB OLIC PANEL protein, total 7.2 g/dL 6.1-8. 1 normal Not Available [address] [address] [place], [address], 05/06/2024 10:20:42 05/05/20 24 05/06/2024 COMPR EHENS ESSIE METAB OLIC PANEL albumin 4.3 g/dL 3.6-5. 1 normal Not Available [address], [address], 05/06/2024 10:20:42 05/05/20 24 05/06/2024 COMPR EHENS ESSIE METAB OLIC PANEL globulin 2.9 g/dL_ (calc ) 1.9-3. 7 normal Not Available [address], [address], 05/06/2024 10:20:42 05/05/20 24 05/06/2024 COMPR EHENS ESSIE METAB OLIC PANEL albumin/glob ulin ratio 1.5 (calc ) 1.0-2. 5 normal Not Available [address] [address] [place], [address], 05/06/2024 10:20:42 05/05/20 24 05/06/2024 COMPR EHENS ESSIE METAB OLIC PANEL bilirubin, total 1.0 mg/dL 0.2-1. 2 normal Not Available [address], [address], 05/06/2024 10:20:42 05/05/20 24 05/06/2024 COMPR EHENS ESSIE METAB OLIC PANEL alkaline phosphatase 58 U/L 35-144 normal Not Available [facility] [address] [address] [place], [address], 05/06/2024 10:20:42 05/05/20 24 05/06/2024 COMPR EHENS ESSIE METAB OLIC PANEL AST 18 U/L 10-35 normal Not Available [address], [address], 05/06/2024 10:20:42 05/05/20 24 05/06/2024 COMPR EHENS ESSIE METAB OLIC PANEL ALT 20 U/L 9-46 normal Not Available [address], [address], 05/06/2024 10:20:42 05/05/20 24 05/06/2024 CBC (INCL UDES DIFF/ PLT) white blood cell count 4.1 thous and/u L 3.8-10 .8 normal Not Available [address], [address], 05/06/2024 10:20:42 05/05/20 24 05/06/2024 CBC (INCL UDES DIFF/ PLT) red blood cell count 5.23 keith on/uL 4.20-5 .80 normal Not Available [address], [address], 05/06/2024 10:20:42 05/05/20 24 05/06/2024 CBC (INCL UDES DIFF/ PLT) hemoglobin 15.0 g/dL 13.2-1 7.1 normal Not Available [address], [address], 05/06/2024 10:20:42 05/05/20 24 05/06/2024 CBC (INCL UDES DIFF/ PLT) hematocrit 45.6 % 38.5-5 0.0 normal Not Available [address], [address], 05/06/2024 10:20:42 05/05/20 24 05/06/2024 CBC (INCL UDES DIFF/ PLT) MCV 87.2 fL 80.0-1 00.0 normal Not Available [address], [address], 05/06/2024 10:20:42 05/05/20 24 05/06/2024 CBC (INCL UDES DIFF/ PLT) MCH 28.7 pg 27.0-3 3.0 normal Not Available [address], [address], 05/06/2024 10:20:42 05/05/20 24 05/06/2024 CBC (INCL UDES DIFF/ PLT) MCHC 32.9 g/dL 32.0-3 6.0 normal For adult s, a sligh t decre ase in the calcu lated MCHC value (in the range of 30 to 32 g/dL) is most likel y not clini petra signi fican t; fabian er, it shoul d be inter prete d with cauti on in [facility] [place] n with other red cell naida eters and the patie nt's clini afshin condi tion. Not Available [address], [address], 05/06/2024 10:20:42 05/05/20 24 05/06/2024 CBC (INCL UDES DIFF/ PLT) RDW 12.4 % 11.0-1 5.0 normal Not Available [address], [address], 05/06/2024 10:20:42 05/05/20 24 05/06/2024 CBC (INCL UDES DIFF/ PLT) platelet count 296 thous and/u L 140-40 0 normal Not Available [address], [address], 05/06/2024 10:20:42 05/05/20 24 05/06/2024 CBC (INCL UDES DIFF/ PLT) MPV 10.9 fL 7.5-12 .5 normal Not Available [address], [address], 05/06/2024 10:20:42 05/05/20 24 05/06/2024 CBC (INCL UDES DIFF/ PLT) absolute neutrophils 1726 cells /uL 1500-7 800 normal Not Available [facility] [address] [address], [place], [address], 05/06/2024 10:20:42 05/05/20 24 05/06/2024 CBC (INCL UDES DIFF/ PLT) absolute lymphocytes 1911 cells /uL 850-39 00 normal Not Available [address], [address], 05/06/2024 10:20:42 05/05/20 24 05/06/2024 CBC (INCL UDES DIFF/ PLT) absolute monocytes 353 cells /uL 200-95 0 normal Not Available [address], [address], 05/06/2024 10:20:42 05/05/20 24 05/06/2024 CBC (INCL UDES DIFF/ PLT) absolute eosinophils 90 cells /uL 15-500 normal Not Available [address], [address], 05/06/2024 10:20:42 05/05/20 24 05/06/2024 CBC (INCL UDES DIFF/ PLT) absolute basophils 21 cells /uL 0-200 normal Not Available [address], [address], 05/06/2024 10:20:42 05/05/20 24 05/06/2024 CBC (INCL UDES DIFF/ PLT) neutrophils 42.1 % normal Not Available [address], [address], 05/06/2024 10:20:42 05/05/20 24 05/06/2024 CBC (INCL UDES DIFF/ PLT) lymphocytes 46.6 % normal Not Available [address], [address], 05/06/2024 10:20:42 05/05/20 24 05/06/2024 CBC (INCL UDES DIFF/ PLT) monocytes 8.6 % normal Not Available [facility] [address] [address] [place], [address], 05/06/2024 10:20:42 05/05/20 24 05/06/2024 CBC (INCL UDES DIFF/ PLT) eosinophils 2.2 % normal Not Available [facility] [address] [address] [place], [address], 05/06/2024 10:20:42 05/05/20 24 05/06/2024 CBC (INCL UDES DIFF/ PLT) basophils 0.5 % normal Not Available [facility] [address] [address] [place], [address], 05/06/2024 10:20:42 05/05/20 24 05/06/2024 VITAM IN D,25- OH,TO MATTHEW,I A vitamin D,25-oh,tota l,ia 27 NG/mL 30-100 low Vitam in D Statu s 25-OH Vitam in D: Defic iency : <20 ng/mL Insuf ficie ncy: 20 - 29 ng/mL Optim al: > or = 30 ng/mL For 25-OH Vitam in D testi ng on patie nts on D2-black pplem entat ion and patie nts for whom quant itati on of D2 and D3 fract ions is requi red, the [facility](TM ) 25-OH VIT D, (D2,D 3), LC/MS /MS is recom no d: order code 23040 (nakia ents >2yrs ). See Note 1 Note 1 For addit ional infor kimber jacob refer to http: //yenny carlos.Rudy stDia gnost ics.c om/fa q/FAQ 199 (This link is being provi ded for infor lori alaniz/ precious bravo purpo ses only. ) Not Available [facility] [address] [address] [place], [address], 05/06/2024 10:20:44 05/05/20 24 05/06/2024 HEMOG LOBIN A1C hemoglobin A1C 6.1 %_of_ total _HGB <5.7 high For someo ne witho ut known diabe nelson, a hemog lobin A1c value betwe en 5.7% and 6.4% is consi stent with predi abete s and shoul d be confi rmed with a follo w-up test. For someo ne with known diabe nelson, a value <7% indic ates that their diabe nelson is well contr olled . A1c targe ts shoul d be indiv idual ized based on durat ion of diabe nelson, age, comor bid condi tions , and other consi derat ions. This assay resul t is consi stent with an incre ased risk of diabe nelson. Curre ntly, no conse nsus exist s regar ding use of hemog lobin A1c for diagn osis of diabe nelson for child katlin. Not Available [address], [address], 05/06/2024 10:20:45 06/11/20 24 06/12/2024 BASIC METAB OLIC PANEL glucose 93 mg/dL 65-99 normal Fasti ng refer ence inter reg Not Available [email or web address] [address], [address], 06/12/2024 05:49:01 06/11/20 24 06/12/2024 BASIC METAB OLIC PANEL urea nitrogen (BUN) 20 mg/dL 7-25 normal Not Available [email or web address] [address], [address], 06/12/2024 05:49:01 06/11/20 24 06/12/2024 BASIC METAB OLIC PANEL creatinine 1.17 mg/dL 0.70-1 .30 normal Not Available [email or web address] [address], [address], 06/12/2024 05:49:01 06/11/20 24 06/12/2024 BASIC METAB OLIC PANEL eGFR 75 mL/mi n/1.7 3m2 > or = 60 normal Not Available [address], [address], 06/12/2024 05:49:01 06/11/2006/12/2024 BASIC METAB OLIC PANEL BUN/creatini ne ratio SEE NOTE: (calc ) 6-22 Not Repor sumit: BUN and Creat inine are withi n refer ence range . Not Available [address], [address], 06/12/2024 05:49:01 06/11/20 24 06/12/2024 BASIC METAB OLIC PANEL sodium 137 mmol/ L 135-14 6 normal Not Available [address], [address], 06/12/2024 05:49:01 06/11/20 24 06/12/2024 BASIC METAB OLIC PANEL potassium 4.1 mmol/ L 3.5-5. 3 normal Not Available [address], [address], 06/12/2024 05:49:01 06/11/20 24 06/12/2024 BASIC METAB OLIC PANEL chloride 98 mmol/ L 98-110 normal Not Available [address], [address], 06/12/2024 05:49:01 06/11/20 24 06/12/2024 BASIC METAB OLIC PANEL carbon dioxide 33 mmol/ L 20-32 high Not Available [address], [address], 06/12/2024 05:49:01 06/11/20 24 06/12/2024 BASIC METAB OLIC PANEL calcium 9.8 mg/dL 8.6-10 .3 normal Not Available [address], [address], 06/12/2024 05:49:01 12/01/19 25 12/01/2024 IRON, TIBC AND KASHMIR TIN PANEL iron, total 108 mcg/d L 50-180 normal Not Available [address], [address], 12/01/2024 07:12:56 12/01/19 25 12/01/2024 IRON, TIBC AND KASHMIR TIN PANEL iron binding capacity 292 mcg/d L_(ca lc) 250-42 5 normal Not Available [address], [address], 12/01/2024 07:12:56 12/01/19 25 12/01/2024 IRON, TIBC AND KASHMIR TIN PANEL % saturation 37 %_(ca lc) 20-48 normal Not Available [address], [address], 12/01/2024 07:12:56 12/01/19 25 12/01/2024 IRON, TIBC AND KASHMIR TIN PANEL ferritin 258 NG/mL 38-380 normal Not Available [address], [address], 12/01/2024 07:12:56 12/01/19 25 12/01/2024 LIPID PANEL , STAND KASIA cholesterol, total 161 mg/dL <200 normal Not Available [address], [address], 12/01/2024 07:12:58 12/01/19 25 12/01/2024 LIPID PANEL , STAND KASIA HDL cholesterol 76 mg/dL > or = 40 normal Not Available [address], [address], 12/01/2024 07:12:58 12/01/19 25 12/01/2024 LIPID PANEL , STAND KASIA triglyceride s 71 mg/dL <150 normal Not Available [address], [address], 12/01/2024 07:12:58 12/01/19 25 12/01/2024 LIPID PANEL , STAND KASIA LDL-choleste rol 70 mg/dL _(afshin c) normal Refer ence range : <100 Madeline able range <100 mg/dL for prima ry preve ntion ; <70 mg/dL for patie nts with CHD or diabe tic patie nts with > or = 2 CHD risk facto rs. LDL-C is now calcu lated using the Luz n-Hop kins calcu gabriele n, which is a valid ated novel metho d provi ding catarino r accur acy than the [employer] equat ion in the estim ation of LDL-C . Luz carlos SS et al. ZITA. 2013; 310(1 9): 2061- 2068 (http ://ed ucati on.Qu davidLight Up [place]. com/f aq/FA Q164) Not Available [address], [address], 12/01/2024 07:12:58 12/01/19 25 12/01/2024 LIPID PANEL , STAND KASIA chol/HDLC ratio 2.1 (calc ) <5.0 normal Not Available [address], [address], 12/01/2024 07:12:58 12/01/1912/01/2024 LIPID PANEL , STAND KASIA non HDL cholesterol 85 mg/dL _(afshin c) <130 normal For patie nts with diabe nelson plus 1 major ASCVD risk facto r, treat ing to a non-H DL-C goal of <100 mg/dL (LDL- C of <70 mg/dL ) is consi tracyd a thera peutcindy c optio n. Not Available [address], [address], 12/01/2024 07:12:58 12/01/1912/01/2024 ALBUM IN, RANDO M URINE W/CRE ATINI NE creatinine, random urine 235 mg/dL 20-320 normal Not Available [address] [place], [address], 12/01/2024 07:12:58 12/01/1912/01/2024 ALBUM IN, RANDO M URINE W/CRE ATINI NE albumin, urine 1.3 mg/dL see note: normal Refer ence Range : Refer ence Range Not estab lishe d Not Available [facility] [address], [address], 12/01/2024 07:12:58 12/01/1912/01/2024 ALBUM IN, RANDO M URINE W/CRE ATINI NE albumin/crea tinine ratio, random urine 6 mg/g_ creat <30 normal The ADA defin es abnor malit ies in album in excre tion as follo ws: Album inuri a Categ ory Resul t (mg/g creat inine ) Tayler l to Mildl y incre ased <30 Moder ately incre ased 30-29 9 Sever kaci incre ased > OR = 300 The ADA recom mends that at least two of three speci mens colle cted withi n a 3-6 month perio d be abnor mal befor e consi beka g a patie nt to be withi n a diagn ostic categ ory. Not Available [address], [address], 12/01/2024 07:12:58 12/01/1912/01/2024 COMPR EHENS ESSIE METAB OLIC PANEL glucose 97 mg/dL 65-99 normal Fasti ng refer ence inter reg Not Available [facility] [address] [place], [address], 12/01/2024 07:12:59 12/01/1912/01/2024 COMPR EHENS ESSIE METAB OLIC PANEL urea nitrogen (BUN) 17 mg/dL 7-25 normal Not Available [facility] [address], [address], 12/01/2024 07:12:59 12/01/19 25 12/01/2024 COMPR EHENS ESSIE METAB OLIC PANEL creatinine 1.10 mg/dL 0.70-1 .30 normal Not Available [address], [address], 12/01/2024 07:12:59 12/01/19 25 12/01/2024 COMPR EHENS ESSIE METAB OLIC PANEL eGFR 81 mL/mi n/1.7 3m2 > or = 60 normal Not Available [address], [address], 12/01/2024 07:12:59 12/01/19 25 12/01/2024 COMPR EHENS ESSIE METAB OLIC PANEL BUN/creatini ne ratio SEE NOTE: (calc ) 6-22 Not Repor sumit: BUN and Creat inine are withi n refer ence range . Not Available [address], [address], 12/01/2024 07:12:59 12/01/19 25 12/01/2024 COMPR EHENS ESSIE METAB OLIC PANEL sodium 138 mmol/ L 135-14 6 normal Not Available [address], [address], 12/01/2024 07:12:59 12/01/19 25 12/01/2024 COMPR EHENS ESSIE METAB OLIC PANEL potassium 4.3 mmol/ L 3.5-5. 3 normal Not Available [address], [address], 12/01/2024 07:12:59 12/01/19 25 12/01/2024 COMPR EHENS ESSIE METAB OLIC PANEL chloride 100 mmol/ L 98-110 normal Not Available [address], [address], 12/01/2024 07:12:59 12/01/19 25 12/01/2024 COMPR EHENS ESSIE METAB OLIC PANEL carbon dioxide 29 mmol/ L 20-32 normal Not Available [address], [address], 12/01/2024 07:12:59 12/01/19 25 12/01/2024 COMPR EHENS ESSIE METAB OLIC PANEL calcium 9.9 mg/dL 8.6-10 .3 normal Not Available [address], [address], 12/01/2024 07:12:59 12/01/19 25 12/01/2024 COMPR EHENS ESSIE METAB OLIC PANEL protein, total 6.8 g/dL 6.1-8. 1 normal Not Available [address], [address], 12/01/2024 07:12:59 12/01/19 25 12/01/2024 COMPR EHENS ESSIE METAB OLIC PANEL albumin 4.3 g/dL 3.6-5. 1 normal Not Available [address], [address], 12/01/2024 07:12:59 12/01/19 25 12/01/2024 COMPR EHENS ESSIE METAB OLIC PANEL globulin 2.5 g/dL_ (calc ) 1.9-3. 7 normal Not Available [address], [address], 12/01/2024 07:12:59 12/01/19 25 12/01/2024 COMPR EHENS ESSIE METAB OLIC PANEL albumin/glob ulin ratio 1.7 (calc ) 1.0-2. 5 normal Not Available [address], [address], 12/01/2024 07:12:59 12/01/19 25 12/01/2024 COMPR EHENS ESSIE METAB OLIC PANEL bilirubin, total 0.6 mg/dL 0.2-1. 2 normal Not Available [address] [place], [address], 12/01/2024 07:12:59 12/01/1912/01/2024 COMPR EHENS ESSIE METAB OLIC PANEL alkaline phosphatase 55 U/L 35-144 normal Not Available [facility] [address], [address], 12/01/2024 07:12:59 12/01/19 25 12/01/2024 COMPR EHENS ESSIE METAB OLIC PANEL AST 17 U/L 10-35 normal Not Available [address], [address], 12/01/2024 07:12:59 12/01/19 25 12/01/2024 COMPR EHENS ESSIE METAB OLIC PANEL ALT 16 U/L 9-46 normal Not Available [address], [address], 12/01/2024 07:12:59 12/01/19 25 12/01/2024 CBC (INCL UDES DIFF/ PLT) white blood cell count 3.7 thous and/u L 3.8-10 .8 low Not Available [address], [address], 12/01/2024 07:13:00 12/01/19 25 12/01/2024 CBC (INCL UDES DIFF/ PLT) red blood cell count 5.02 keith on/uL 4.20-5 .80 normal Not Available [address], [address], 12/01/2024 07:13:00 12/01/19 25 12/01/2024 CBC (INCL UDES DIFF/ PLT) hemoglobin 14.5 g/dL 13.2-1 7.1 normal Not Available [employer] [address], [address], 12/01/2024 07:13:00 12/01/19 25 12/01/2024 CBC (INCL UDES DIFF/ PLT) hematocrit 45.3 % 38.5-5 0.0 normal Not Available [address], [address], 12/01/2024 07:13:00 12/01/19 25 12/01/2024 CBC (INCL UDES DIFF/ PLT) MCV 90.2 fL 80.0-1 00.0 normal Not Available [facility] [address], [address], 12/01/2024 07:13:00 12/01/1912/01/2024 CBC (INCL UDES DIFF/ PLT) MCH 28.9 pg 27.0-3 3.0 normal Not Available [address], [address], 12/01/2024 07:13:00 12/01/19 25 12/01/2024 CBC (INCL UDES DIFF/ PLT) MCHC 32.0 g/dL 32.0-3 6.0 normal For adult s, a sligh t decre ase in the calcu lated MCHC value (in the range of 30 to 32 g/dL) is most likel y not clini petra signi ficjody t; fabian er, it shoul d be inter prete d with cauti on in [facility] n with other red cell naida eters and the patie nt's clini afshin condi tion. Not Available [address], [address], 12/01/2024 07:13:00 12/01/19 25 12/01/2024 CBC (INCL UDES DIFF/ PLT) RDW 12.4 % 11.0-1 5.0 normal Not Available [address], [address], 12/01/2024 07:13:00 12/01/19 25 12/01/2024 CBC (INCL UDES DIFF/ PLT) platelet count 274 thous and/u L 140-40 0 normal Not Available [address], [address], 12/01/2024 07:13:00 12/01/19 25 12/01/2024 CBC (INCL UDES DIFF/ PLT) MPV 10.0 fL 7.5-12 .5 normal Not Available [address], [address], 12/01/2024 07:13:00 12/01/19 25 12/01/2024 CBC (INCL UDES DIFF/ PLT) absolute neutrophils 2379 cells /uL 1500-7 800 normal Not Available [address], [address], 12/01/2024 07:13:00 12/01/19 25 12/01/2024 CBC (INCL UDES DIFF/ PLT) absolute lymphocytes 844 cells /uL 850-39 00 low Not Available [address], [address], 12/01/2024 07:13:00 12/01/1912/01/2024 CBC (INCL UDES DIFF/ PLT) absolute monocytes 348 cells /uL 200-95 0 normal Not Available [address], [address], 12/01/2024 07:13:00 12/01/1912/01/2024 CBC (INCL UDES DIFF/ PLT) absolute eosinophils 111 cells /uL 15-500 normal Not Available [facility] [address], [address], 12/01/2024 07:13:00 12/01/1912/01/2024 CBC (INCL UDES DIFF/ PLT) absolute basophils 19 cells /uL 0-200 normal Not Available [address], [address], 12/01/2024 07:13:00 12/01/19 25 12/01/2024 CBC (INCL UDES DIFF/ PLT) neutrophils 64.3 % normal Not Available [address], [address], 12/01/2024 07:13:00 12/01/19 25 12/01/2024 CBC (INCL UDES DIFF/ PLT) lymphocytes 22.8 % normal Not Available [address], [address], 12/01/2024 07:13:00 12/01/19 25 12/01/2024 CBC (INCL UDES DIFF/ PLT) monocytes 9.4 % normal Not Available [address], [address], 12/01/2024 07:13:00 12/01/19 25 12/01/2024 CBC (INCL UDES DIFF/ PLT) eosinophils 3.0 % normal Not Available [address], [address], 12/01/2024 07:13:00 12/01/19 25 12/01/2024 CBC (INCL UDES DIFF/ PLT) basophils 0.5 % normal Not Available [address], [address], 12/01/2024 07:13:00 12/01/1912/01/2024 PSA, TOTAL PSA, total 1.28 NG/mL < or = 4.00 normal The total PSA value from this assay syste m is stand ardiz ed again st the WHO stand kasia. The test resul t will be appro ximat kaci 20% lower when erwin red to the equim olar- stand ardiz ed total PSA (Barton man Coult er). Erwin rison of seria l PSA resul ts shoul d be inter prete d with this fact in mind. This test was perfo rmed using the Sieme ns chemi lumin escen t metho d. Value s obtai christin from diffe rent assay metho ds canno t be used inter mcallister eably . PSA level s, regar dless of value , shoul d not be inter prete d as absol denzel evide nce of the prese nce or absen ce of disea se. Not Available [employer] [address] [address] [place], [address], 12/01/2024 07:13:00 12/01/19 25 12/01/2024 VITAM IN D,25- OH,TO MATTHEW,I A vitamin D,25-oh,tota l,ia 61 NG/mL 30-100 normal Vitam in D Statu s 25-OH Vitam in D: Defic iency : <20 ng/mL Insuf ficie ncy: 20 - 29 ng/mL Optim al: > or = 30 ng/mL For 25-OH Vitam in D testi ng on patie nts on D2-black pplem entat ion and patie nts for whom quant itati on of D2 and D3 fract ions is requi red, the [facility] Assur eD(TM ) 25-OH VIT D, (D2,D 3), LC/MS /MS is recom no d: order code [id number] (nakia ents >2yrs ). See Note 1 Note 1 For addit ional infor kimber jacob refer to http: //yenny Torres stDia gnost ics.c om/fa q/FAQ 199 (This link is being provi ded for infor lori alaniz/ precious bravo purpo ses only. ) Not Available [employer] [facility] [address] [place], [address], 12/01/2024 07:13:01 12/01/19 25 12/01/2024 HEMOG LOBIN A1C hemoglobin A1C 5.9 %_of_ total _HGB <5.7 high For someo ne witho ut known diabe nelson, a hemog lobin A1c value betwe en 5.7% and 6.4% is consi stent with predi abete s and shoul d be confi rmed with a follo w-up test. For someo ne with known diabe nelson, a value <7% indic ates that their diabe nelson is well contr olled . A1c targe ts shoul d be indiv idual ized based on durat ion of diabe nelson, age, comor bid condi tions , and other consi derat ions. This assay resul t is consi stent with an incre ased risk of diabe nelson. Curre ntly, no conse nsus exist s dariela mendes use of hemog lobin A1c for diagn osis of diabe nelson for child katlin. Not Available [employer] [facility] [address], [place], [address], 12/01/2024 07:13:02 04/06/20 24 stres s test only, exerc ise [facility] [address] [place] [address] [address] Orderi ng Provid er: PALMA ADLER STRESS TEST TRACIN G ONLY Pat.Na me: SOLEDAD BRADFORD Pat.ID : [id number] e: 024 Refer. MD: PALMA ADLER Exam Time: 12:48: 00 PM Study Type:S EB NC STRESS TEST TRACIN G ONLY Height : 74 in Weight : 190 lb BSA: 2.13 m2 Age: [birth year] [age] Sex: M HR: 77 bpm Pat. Stat.: Outpat ient Reason for Study: Abnorm al EKG Histor y / Clinic al:Dys lipide elie, Hypert ension Proced ures: Regula r Stress Test Race: B ++++++ ++++++ ++++++ ++++++ ++++++ ++++++ SUMMAR Y: ++++++ ++++++ ++++++ ++++++ ++++++ ++++++ Stress conclu johnny: 1. Clinic ally negati ve. 2. Electr ocardi ograph ically equivo afshin treadm ill test for ischem ia. 3. Excell ent exerci se capaci ty. 4. Blood pressu re respon se was normal . 5. Hebert Treadm ill Score is 10, which indica nelson low risk. ++++++ ++++++ ++++++ ++++++ ++++++ ++++++ STRESS : ++++++ ++++++ ++++++ ++++++ ++++++ ++++++ Baseli ne Vital Signs: ECG: Normal sinus rhythm , non-sp ecific ST-T wave abnorm ality HR: 77 bmp Rest BP: 131/89 Treadm ill Test Protoc ol: Luther Say on: 10:00 min:se c Max. Worklo ad (METS) : 12.1 Stress Test Result s: Max HR: 153 bmp Target HR: 169 bmp % Target : 91 % Max BP: 170/88 Max RPP: 38422 O2 sat: 99 % Sympto ms and Compli cation s: Arrhyt hmias: None Termin ated: Attain ment of adequa te heart rate, Shortn ess of breath , Dyspne a Sympto ms: Shortn ess of breath , Dyspne a Compli cation s: None Stress ECG Interp : No ST segmen t change s diagno stic of ischem ia 2023 04:00 PM Palma Adler M.D. [address], [address], 04/20/2024 20:43:59 11/26/19 25 11/30/2024 elect rocar diogr am No observ ation record ed. ninfa [facility], [address], [place], [address], 11/30/2024 17:08:12 12/01/19 25 11/25/2024 elect rocar diogr am No observ ation record ed. ninfa [facility], [address], [place], [address], 11/30/2024 17:08:26 04/13/20 25 04/12/2025 XR, krueger um, 2 or more view No observ ation record ed. [facility] [address], [place], [address], 04/13/2025 13:51:13 Result Notes None recorded. Problems Name Problem SNOMED Code Status Onset Date Resolution Date Notes Provider Name and Address Organization Details Recorded Time Pruritic rash 39807073 Active 2022 Not Available [facility] 3 12:38:45 Internal hemorrhoids 12402888 Active 2022 Not Available [facility] 3 12:38:45 Dysuria 01310984 Active 2022 MD Johnathon Ng [address], [place], [place], , [facility] 3 09:44:53 Essential hypertension 07653441 Active 2022 MD Johnathon Ng [address], [place], [place], , [facility] 3 09:44:53 Impaired glucose tolerance 6087412 Active 2022 MD Johnathon Ng [address], [place], [place], , [facility] 3 09:44:53 Vitamin D deficiency 35974443 Active 2022 MD Johnathon Ng [address], [place], [place], , [facility] 3 09:45:40 Hyperlipidemi a 81698796 Active 2022 MD Johnathon Ng [address], [place], [place], , [facility] 3 09:46:12 Hematochezia 219726489 Active 2022 MD Johnathon Ng [address], [place], , [facility] 3 10:03:28 Problem Notes None recorded. Medical Equipment None Reported. Allergies Allergen ID Allergen Name Allergen Category Reaction Reaction Severity Criticality Documentation Date Start Date Code Code System Note Provider Name and Address Organization Details Recorded Time Adhesive agent (substanc e) environme nt,medica tion other Not available low 11/25/20242019 12105 0007 SNOMED Not Available roberto - External [employer] - prod 15:47:33 58365 telmisart an medicatio n Not available Not available Not available 04/05/20252020 84108 RxNorm Not Available roberto - External Data Service - prod 15:37:46 Medications Name Sig Start Date Stop Date Status Note LastModified by Organization Details LastModified Time sildenafi l 50 mg tablet 05/18 completed -- on tadalafi l Not Available Not Available Not Available spironola ctone 25 mg-hydroc hlorothia zide 25 mg tablet TAKE 1 TABLET BY MOUTH EVERY DAY [facility] Not Available Not Available Not Available prednison e 20 mg tablet 20 MG ORALLY DAILY 05/08 completed -- issued by ENT Dr Mahamed Mera Not Available Not Available Not Available methylpre dnisolone 4 mg tablet TAKE ONE TABLET BY MOUTH TWICE DAILY 05/08 completed -- issued by ENT Dr Mahamed Mera for ear sx Not Available Not Available Not Available amlodipin e 5 mg tablet Take 1 tablet every day by oral route. 07/02 completed -- on 10 mg now Not Available Not Available Not Available peg-elect rolyte solution 420 gram oral solution TAKE DIRECTED BY OFFICE 05/18 completed Not Available Not Available Not Available triamcino lone acetonide 0.1 % topical cream APPLY THIN COAT TO AFFECTED AREA TWICE A DAY 04/05 completed Not Available Not Available Not Available simvastat in 40 mg tablet TAKE 1 TABLET BY MOUTH EVERYDAY AT BEDTIME 05/18 completed Not Available Not Available Not Available hydrocort isone 2.5 % topical cream with perineal applicato r APPLY RECTALLY DAILY NEEDED FOR HEMORRHO IDS 04/05 completed Not Available Not Available Not Available prednisol one acetate 1 % eye drops,tonia pension 07/02 completed Not Available Not Available Not Available baclofen 10 mg tablet TAKE 1 TABLET BY MOUTH THREE TIMES A DAY NEEDED 05/08 completed Not Available Not Available Not Available amlodipin e 10 mg tablet TAKE 1 TABLET BY MOUTH EVERY DAY IN THE EVENING active [facility] Not Available Not Available Not Available cephalexi n 500 mg capsule 05/18 completed Not Available Not Available Not Available pantopraz ole 40 mg tablet,de layed release TAKE 1 TABLET BY MOUTH EVERY DAY 11/17 completed -- given for GERD but pt today reported he is no longer on it Not Available Not Available Not Available promethaz ine 25 mg tablet TAKE 1/2 TABLET BY MOUTH EVERY 6 HOURS NEEDED FOR NAUSEA 05/18 completed Not Available Not Available Not Available Drysol Dab-O-Mat ic 20 % topical solution APPLY TO NOTED AREAS AT BEDTIME. active Not Available Not Available No t Available hydrochlo rothiazid e 25 mg tablet TAKE 1 TABLET BY MOUTH EVERY DAY 07/02 completed -- changed to spironol actone-h ctz Not Available Not Available Not Available ergocalci ferol (vitamin D2) 1,250 mcg (50,000 unit) capsule TAKE 1 CAPSULE BY MOUTH ONE TIME PER WEEK DIRECTED 11/17 completed -- on 11/17/20, pt reported he is no longer on it Not Available Not Available Not Available azelastin e 137 mcg (0.1 %) nasal spray 137 MCG (0.137 ML) INTRANAS ALLY EVERY 12 HOURS ADMINIST ER INTO EACH NOSTRIL active Not Available Not Available No t Available methylpre dnisolone 4 mg tablets in a dose pack TAKE 6 TABLETS ON DAY 1 DIRECTED ON PACKAGE AND DECREASE BY 1 TAB EACH DAY FOR A TOTAL OF 6 DAYS 04/05 completed -- issued by Chiropra ctor for Lumbar pain Not Available Not Available Not Available metformin ER 500 mg tablet,ex tended release 24 hr TAKE 1 TABLET BY MOUTH EVERY DAY AT DINNER [facility] Not Available Not Available Not Available cholecalc iferol (vitamin D3) 125 mcg (5,000 unit) capsule Take 1 capsule every day by oral route. active Not Available Not Available No t Available amoxicill in 875 mg-potass ium clavulana te 125 mg tablet TAKE 1 TABLET BY MOUTH EVERY 12 HOURS FOR 7 DAYS 05/08 completed -- [facility] Not Available Not Available Not Available rosuvasta tin 5 mg tablet 1 tab daily; stop the Simvasta tin 05/18 completed -- on 10 mg now Not Available Not Available Not Available rosuvasta tin 10 mg tablet [facility] ([facility]) Not Available Not Available Not Available tadalafil 5 mg tablet 05/08 completed -- on 20 mg qd prn now Not Available Not Available Not Available tadalafil 20 mg tablet active ([facility]) Not Available Not Available Not Available cholecalc iferol (vitamin D3) 25 mcg (1,000 unit) tablet 04/05 completed -- oon 5,000 units now Not Available Not Available Not Available hydrochlo rothiazid e 12.5 mg tablet Take 1 tablet every day by oral route. 05/18 completed Not Available Not Available Not Available Vitals Date Recorded Body height Heart rate Respiratory rate Body temperature Body mass index (BMI) Body weight Systolic And Diastolic Provider Name and Address Organization Details Last Updated DateTime 5 187.96 cm 69 /min 16 /min 98.4 [degF] 23.6 kg/m2 52993 g 132/82 mm[Hg] [facility] 5 16:38:39 Date Recorded Body height Heart rate Respiratory rate Body temperature Body mass index (BMI) Body weight Systolic And Diastolic Provider Name and Address Organization Details Last Updated DateTime 4 187.96 cm 68 /min 16 /min 98 [degF] 24.7 kg/m2 57752.7 4 g 135/88 mm[Hg] [facility] 4 15:31:35 Date Recorded Body height Heart rate Respiratory rate Body temperature Body mass index (BMI) Body weight Systolic And Diastolic Provider Name and Address Organization Details Last Updated DateTime 5 187.96 cm 76 /min 16 /min 97.9 [degF] 24.5 kg/m2 36919.1 4 g 130/85 mm[Hg] [facility] 5 17:23:01 Date Recorded Body height Heart rate Respiratory rate Body temperature Body mass index (BMI) Body weight Systolic And Diastolic Provider Name and Address Organization Details Last Updated DateTime 4 187.96 cm 69 /min 16 /min 97.5 [degF] 25 kg/m2 22783.5 1 g 134/78 mm[Hg] Juliet Ely [facility] 4 19:38:36 Date Recorded Body height Heart rate Respiratory rate Body temperature Body mass index (BMI) Body weight Systolic And Diastolic Provider Name and Address Organization Details Last Updated DateTime 4 187.96 cm 72 /min 16 /min 97.8 [degF] 25 kg/m2 30749.5 1 g 118/71 mm[Hg] Juliet Ely [facility] 4 10:28:33 Social History Question Answer Notes LastModified by Organizat ion Details LastModified Time Tobacco Smoking Status Never Smoker Khloe lopez [facility] 11/17/2020 09:54:43 What Is Your Level Of Caffeine Consumption? Occasional Coffee When Working Information not available 05/18/2021 How Much Tobacco Do You Chew? None Information not available 11/17/2020 What Is Your Code Status? Full Code Information not available 05/18/2021 In The 14 Days Before Symptom Onset, Have You Had Close Contact With A Laboratory-confir med COVID-19 While That Case Was Ill? No Information not available 05/18/2021 In The 14 Days Before Symptom Onset, Have You Had Close Contact With A Person Who Is Under Investigation For COVID-19 While That Person Was Ill? No Information not available 05/18/2021 Have You Been To An Area Known To Be High Risk For COVID-19? No Information not available 05/18/2021 What Type Of Diet Are You Following? REGULAR Information not available 05/18/2021 Which Illicit Or Recreational Drugs Have You Used? None Information not available 12/15/2020 Education 2 Year College Information not available 05/18/2021 Marital Status Informatio n not available 05/18/2021 What Was The Date Of Your Most Recent Tobacco Screening? 04/05/2025 Information not available 04/05/2025 How Much Tobacco Do You Smoke? No Information not available 11/17/2020 How Many Years Have You Smoked Tobacco? 0 Information not available 12/15/2020 Sex: Unknown Functional Status Question Answer Note LastModified by Organizat ion Details LastModified Time What is your level of alcohol consumption? Occasional hasn't drank 2 year stopped in 2019 Information not available 05/18/2022 Do you or have you ever used smokeless tobacco? 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 Never used electronic cigarettes Information not available 05/18/2021 What is your exercise level? Moderate Information not available 05/18/2021 Mental Status None recorded. Family History Relationship Description Onset Age of this Age Resolved Age Notes LastModified by Organization Details LastModified Time Mother Heart disease Stent placem ent--- mid 60's lcallison Not available 11/17/2020 09:59:00 Mother Diabetes mellitus lcallison Not available 2020 09:54:23 Father Diabetes mellitus lcallison Not available 2020 09:54:23 Maternal Grandfather Malignant neoplasm of lung Not a smoker but worked in the [employer] -- dx'd in his 60's jcallion Not available 05/18/2021 11:25:05 Medical History No medical history recorded. Immunizations Vaccine Type Date Status Note Provider Nam e and Address Organization Details Recorded Time Tdap 1 completed MD Johnathon Ng [facility] [address], [place], [address], [facility] 03/06/2023 05:47:15 COVID-19, mRNA, LNP-S, PF, 100 mcg/0.5mL dose or 50 mcg/0.25mL dose 1 completed MD Johnathon Ng [facility] [address], [place], [address], [facility] 03/06/2023 05:47:15 COVID-19, mRNA, LNP-S, PF, 100 mcg/0.5mL dose or 50 mcg/0.25mL dose 1 completed MD Johnathon Ng [address], [place], [address], [facility] 03/06/2023 05:47:15 COVID-19, mRNA, LNP-S, PF, 100 mcg/0.5mL dose or 50 mcg/0.25mL dose 1 completed MD Johnathon Ng [facility] [address], [place], [address], [facility] 03/06/2023 05:47:15 COVID-19, mRNA, LNP-S, bivalent, PF, 50 mcg/0.5 mL or 25mcg/0.25 mL dose 2 completed MD Johnathon Ng [facility] [address], [place], [address], [facility] 03/06/2023 05:47:15 influenza nasal, unspecified formulation 2 completed MD Johnathon Ng [facility] [address], [place], [address], [facility] 03/06/2023 05:47:15 Influenza, MDCK, quadrivalent, PF 3 completed MD Johnathon Ng [facility] [address], [place], [address], [facility] 03/06/2023 05:47:15 zoster recombinant 3 completed MD Johnathon Ng [facility] [address], [place], [address], [facility] 03/06/2023 05:47:15 Influenza, split virus, trivalent, PF 4 completed Lashell Nunes null, [facility] 06/24/2024 20:26:42 COVID-19, mRNA, LNP-S, PF, jimi-sucrose, 10 mcg/0.3 mL 3 completed Juliet Ely null, [facility] 11/26/2024 08:57:33 zoster, unspecified formulation 3 completed Juliet lopez, [facility] 11/26/2024 08:58:37 Pneumococcal conjugate PCV20, polysaccharide [id number] conjugate, adjuvant, PF [address] [facility] 12/12/2024 17:54:50 Past Encounters Encounter ID Performer Location Encounter Start Date Encounter Closed Date Diagnosis/Indication Diagnosis SNOMED-CT Code Diagnosis ICD10 Code Diagnosis IMO Codes Diagnosis Note [id number] Josafat Nunes MD [facility], [address] [address] 11/17/2020 09:29:51 11/17/2020 11:01:52 Essential hypertension 30771577 I10 Hyperlipidemia 35605175 E78.5 Primary er ectile dysfunction 413694144 N52.9 Family his tory of diabetes mellitus 415116589 Z83.3 Body mass index 25-29 - overweight 110203215 Z68.25 Active or passive immunization 385773724 Z23 Vitamin D deficiency 347 51501 E55.9 Vit D deficiency has been associated w/ increase risks for stroke, cancer, heart attack, dementia, poor immunity, and increased bone loss (risk for easy bone fracture). -- start over-the-c ounter Vit D3 5,000 units 1 gel capsule daily & recheck Vitamin D level in 3 months. Left ventr icular hypertrophy 07702283 I51.7 (on EKG done on 11/17/20) Hepatitis C screening 41 7832636 Z11.59 [id number] Josafat Nunes MD [facility], [address] ,[address] [place] [address] 12/15/2020 15:06:54 12/15/2020 16:52:03 Adult health examination 847729753 Z00.00 Essential hypertension 53166866 I10 -- EKG done on 11/21/20 Hyperlipidemia 80322640 E78.5 Primary er ectile dysfunction 498517746 N52.9 Vitamin D deficiency 347 27325 E55.9 Vit D deficiency has been associated w/ increase risks for stroke, cancer, heart attack, dementia, poor immunity, and increased bone loss (risk for easy bone fracture). -- start over-the-c ounter Vit D3 5,000 units 1 gel capsule daily & recheck Vitamin D level in 3 months. Left ventr icular hypertrophy 76533347 I51.7 (on EKG done on 11/17/20) Hepatitis C screening 41 5602383 Z11.59 -- Hep C tested negative on 11/23/20 Active or passive immunization 340621124 Z23 Impaired g lucose tolerance 8895156 R73.03 (Mom & Dad both diabetic) -- A1c level of 5.7 on11/23/20- - will need to limit Carbohydra nelson intake to between 40- 50 gram per meal & also between 120 - 150 grams a day. -- Examples of Carbohydra nelson are: ice-cream, sweet sugar treats, rice, potatoes, sweet potatoes (yams), bananas, corn products (popcorn, corn muffin, corn bread, cornflakes , corn ), oats, flour products (pasta, bread, bagel, muffins, donuts, biscuits, cookies, crackers, pancakes, waffle, cakes, pies &/or Alcohol. Body mass index 20-24 - normal 075604984 Z68.24 -- Pt is in the healthy weight category w/ a BMI of 24.3 [id number] Josafat Nunes MD [facility], [place] [address] Formerly [facility] [place] ,[address] [address] 05/18/2021 11:25:00 05/18/2021 13:06:00 Dysuria 51255700 R30.9 Pruritic rash 48249702 L 28.2 Impaired g lucose tolerance 1150325 R73.03 (Mom & Dad both diabetic) -- A1c level of 5.7 on11/23/20- - will need to limit Carbohydra nelson intake to between 40- 50 gram per meal & also between 120 - 150 grams a day.-- Examples of Carbohydra nelson are: ice-cream, sweet sugar treats, rice, potatoes, sweet potatoes (yams), bananas, corn products (popcorn, corn muffin, corn bread, cornflakes , corn ), oats, flour products (pasta, bread, bagel, muffins, donuts, biscuits, cookies, crackers, pancakes, waffle, cakes, pies &/or Alcohol. Essential hypertension 69744421 I10 -- EKG done on 11/21/20-- BP controlled Active or passive immunization 330496323 Z23 Screening for malignant neoplasm of colon 776930319 Z12.11 [id number] Josafat Nunes MD [facility] [address] [facility] [address] [place] [address] 05/18/2022 08:27:32 05/18/2022 09:38:54 Adult health examination 858601401 Z00.00 Dysuria 68847290 R30.9 -- resolved Pruritic rash 68666081 L 28.2 (due to sun exposure) -- resolved after he started using sun screen. Essential hypertension 53215182 I10 -- EKG done on 11/21/20-- BP uncontroll ed; will increase Amlodipine from 5 mg to 10 mg daily; pt will call back to activate documentat ed Rx pending response to dose increase. Impaired g lucose tolerance 6438527 R73.03 (Mom & Dad both diabetic) -- A1c level of 5.7 on11/23/20- - will need to limit Carbohydra nelson intake to between 40- 50 gram per meal & also between 120 - 150 grams a day.-- Examples of Carbohydra nelson are: ice-cream, sweet sugar treats, rice, potatoes, sweet potatoes (yams), bananas, corn products (popcorn, corn muffin, corn bread, cornflakes , corn ), oats, flour products (pasta, bread, bagel, muffins, donuts, biscuits, cookies, crackers, pancakes, waffle, cakes, pies &/or Alcohol. Active or passive immunization 507124879 Z23 -- current Screening for malignant neoplasm of colon 709751617 Z12.11 -- Gastroente rologist Dr Gómez Wan recommends repeat colonoscop y 10 years from 07/27/21 Lumbar radiculopathy 128 369614 M54.16 (radiates to both Rt ant & Rt post thigh) -- currently seeing Chiropract or Dr Shell at [facility] ) but he is out of neckwork. [id number] Josafat Nunes MD [facility] [address] [facility] [address] [place] [address] 05/08/2023 09:04:00 05/08/2023 10:23:55 Adult health examination 254205118 Z00.00 Essential hypertension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
== END 2025-05-12 07:42 | disposition home or self-care (01) ==
LOC: ANHBWCAUD 07:42
PROVIDERS: Visit Provider Otolaryngology
DX: H90.3 Sensorineural hearing loss, bilateral (principal); H93.12 Tinnitus, left ear; J32.0 Chronic maxillary sinusitis
CPT/HCPCS: 92557; 92567